=== PATIENT | male | born 1995 | race Caucasian/White ===

== ENCOUNTER 2020-05-05 22:22 | Inpatient (IN) | payer MEDICAID ==
[~2020-05-05] VITALS: Ht 160 cm; Wt 65.8 kg
[~2020-05-05 22:22] MED LIST: AMIT25TA9 PO; OXYC40TA50 PO
[2020-05-05] MEDS ORDERED: KETOROLAC 30MG/ML VIAL IV STA (22:34)
[2020-05-05] MEDS ORDERED: SODIUM CHLORIDE 0.9% 1,000 ML IV ONE (22:34)
[2020-05-05] MEDS ORDERED: ONDANSETRON HCL 4MG/2ML INJ IV STA (22:34)
[2020-05-05 23:19] LABS: BASOPHILS % 0.4 % (0.0-2.0); HEMATOCRIT. 43.1 % (42.0-52.0); HEMOGLOBIN. 14.7 g/dL (14.0-18.0); LYMPHOCYTES % 9.4 % (20.0-50.0); MEAN CORPUSCULAR HEMOGLOBIN 30.6 pg (28.0-32.0); MEAN CORPUSCULAR VOLUME 89.6 fL (80.0-94.0); MONOCYTES % 8.9 % (2.0-8.0); NEUTROPHILS % 81.3 % (40.0-76.0); PLATELET 195 x1000/uL (130-400); RED BLOOD CELL COUNT 4.81 mill/uL (4.7-6.1); RED CELL DISTRIBUTION WIDTH 13.7 % (11.6-14.6)
[2020-05-05 23:28] LABS: INR 1.1; PROTHROMBIN TIME 11.7 sec (9.6-11.0)
[2020-05-05 23:29] LABS: CHLORIDE 99 mEq/L (98-107)
[2020-05-05 23:37] LABS: CLARITY URINE CLEAR (CLEAR); COLOR URINE DARK YELLOW (YELLOW); KETONES URINE 3+ (NEGATIVE); LEUKOCYTE ESTERASE URINE NEGATIVE (NEGATIVE); NITRITE URINE NEGATIVE (NEGATIVE); OCCULT BLOOD URINE NEGATIVE (NEGATIVE); PROTEIN URINE 1+ (NEGATIVE); SPECIFIC GRAVITY URINE 1.038 (1.005-1.030)
[2020-05-06] MEDS ORDERED: ONDANSETRON HCL 4MG/2ML INJ IV ONE ×2 (01:30)
[2020-05-06] MEDS ORDERED: KETOROLAC 15MG/ML VIAL IV ONE (02:00)
[2020-05-06] MEDS ORDERED: KCL 20MEQ/100ML PREMIX 100 ML IV SCH (02:00)
[2020-05-06] MEDS ORDERED: PIPERACILLIN/TAZOBACTAM 3.375GM/50ML PREMIX IV SCH (02:00)
[2020-05-06] MEDS: ONDANSETRON HCL 4MG/2ML INJ IV PRN ×3 (03:38→14:34)
[2020-05-06] MEDS: MORPHINE SULFATE 2 MG/ML CPJ (NOT FOR IM USE) IV PRN ×3 (03:38→18:05)
[2020-05-06 08:00] VITALS: BP 109/55
[2020-05-06] MEDS ORDERED: ACETAMINOPHEN 325MG TABLET PO PRN (08:15)
[2020-05-06 10:53] VITALS: BP 109/55
[2020-05-06] MEDS: PIPERACILLIN/TAZOBACTAM 3.375 G in DEXT 5% WATER 100 ML IV SCH ×3 (11:17→22:14)
[2020-05-06 12:00] VITALS: BP 128/80
[2020-05-06] MEDS: DEXT 5%/0.9% NACL 1,000 ML IV SCH (15:46)
[2020-05-06 16:00] VITALS: BP 123/71
[2020-05-07] VITALS: BP 105/72
[2020-05-07] MEDS: ONDANSETRON HCL 4MG/2ML INJ IV PRN (02:15)
[2020-05-07] MEDS: DEXT 5%/0.9% NACL 1,000 ML IV SCH ×2 (02:15→11:55)
[2020-05-07 04:00] VITALS: BP 100/59
[2020-05-07] MEDS: PIPERACILLIN/TAZOBACTAM 3.375 G in DEXT 5% WATER 100 ML IV SCH ×2 (04:38→09:31)
[2020-05-07] MEDS: MORPHINE SULFATE 2 MG/ML CPJ (NOT FOR IM USE) IV PRN ×2 (05:26→09:32)
[2020-05-07 08:00] VITALS: BP 110/71
[2020-05-07 12:00] VITALS: BP 115/76
[2020-05-07 14:28] VITALS: BP 115/76
[2020-05-07] MEDS ORDERED: AZIT500T8 MT (14:47)
== END 2020-05-07 16:05 | disposition home or self-care (01) | DRG 720 ==
LOC: ER 22:22 → 6EST 05-06 01:00 → ENRESERV 05-06 05:07
PROVIDERS: ADMIT Internal Medicine; ATTEND Internal Medicine
DX: A41.9 Sepsis, unspecified organism (principal); E87.1 Hypo-osmolality and hyponatremia; E87.6 Hypokalemia; F12.90 Cannabis use, unspecified, uncomplicated; K52.9 Noninfective gastroenteritis and colitis, unspecified; Z79.899 Other long term (current) drug therapy; Z79.891 Long term (current) use of opiate analgesic
CPT/HCPCS: 36415; 71045; 80053; 81003; 84484; 85025; 99285; J1885; J2270; J2405; J2543; J3480; J7030; J7042; J7060

== ENCOUNTER 2021-02-20 20:38 | Inpatient (IN) | payer MEDICAID ==
[~2021-02-20] VITALS: Ht 160 cm; Wt 67.8 kg
[~2021-02-20 20:38] MED LIST changes: +AZIT500T8 MT; +FAMO20TA8 MT; +ONDA4TAB50 MT
[2021-02-20] MEDS ORDERED: ONDANSETRON HCL 4MG/2ML INJ IV STA (21:20)
[2021-02-20] MEDS ORDERED: KETOROLAC 30MG/ML VIAL IV STA (21:20)
[2021-02-20] MEDS ORDERED: SODIUM CHLORIDE 0.9% 1,000 ML IV ONE (21:30)
[2021-02-20 21:47] LABS: HEMATOCRIT. 48.3 % (42.0-52.0); HEMOGLOBIN. 16.6 g/dL (14.0-18.0); MEAN CORPUSCULAR HEMOGLOBIN 30.1 pg (28.0-32.0); MEAN CORPUSCULAR VOLUME 87.5 fL (80.0-94.0); MEAN PLATELET VOLUME 10.3 fl (7.4-10.4); PLATELET 269 x1000/uL (130-400); RED BLOOD CELL COUNT 5.52 mill/uL (4.7-6.1); RED CELL DISTRIBUTION WIDTH 13.5 % (11.6-14.6)
[2021-02-20 21:54] LABS: CHLORIDE 106 mEq/L (98-107)
[2021-02-20 21:58] LABS: ETHANOL BLOOD < 10 mg/dL
[2021-02-20 22:18] LABS: PLATELET ESTIMATE NORMAL
[2021-02-21] MEDS ORDERED: LORAZEPAM 2MG/ML CPJ IV ONE (00:30)
[2021-02-21] MEDS ORDERED: METOCLOPRAMIDE HCL 10MG/2ML VIAL IV ONE (00:30)
[2021-02-21 03:02] LABS: CLARITY URINE CLEAR (CLEAR); COLOR URINE YELLOW (YELLOW); KETONES URINE 4+ (NEGATIVE); LEUKOCYTE ESTERASE URINE NEGATIVE (NEGATIVE); NITRITE URINE NEGATIVE (NEGATIVE); OCCULT BLOOD URINE NEGATIVE (NEGATIVE); PH URINE 7.5 (4.5-8.0); PROTEIN URINE TRACE (NEGATIVE); SPECIFIC GRAVITY URINE 1.027 (1.005-1.030); UROBILINOGEN URINE 0.2 E.U./dL (0.2-1.0)
[2021-02-21 03:21] LABS: *AMPHETAMINES SCREEN URINE NEGATIVE (NEGATIVE); *BARBITURATES SCREEN URINE NEGATIVE (NEGATIVE); *BENZODIAZEPINES SCREEN URINE NEGATIVE (NEGATIVE); *COCAINE SCREEN URINE NEGATIVE (NEGATIVE); METHADONE URINE SCREEN NEGATIVE (NEGATIVE); OPIATES URINE SCREEN NEGATIVE (NEGATIVE); PHENCYCLIDINE URINE SCREEN NEGATIVE (NEGATIVE)
[2021-02-21 03:22] LABS: CANNABINOID URINE SCREEN PRESUMTIVE POSITIVE (NEGATIVE)
[2021-02-21] MEDS ORDERED: MORPHINE SULFATE 2 MG/ML CPJ (NOT FOR IM USE) IV PRN (03:30)
[2021-02-21] MEDS ORDERED: METOCLOPRAMIDE HCL 10MG/2ML VIAL IV PRN (03:30)
[2021-02-21 04:20] VITALS: BP 139/88
[2021-02-21] MEDS ORDERED: ACETAMINOPHEN 325MG TABLET PO PRN (05:15)
[2021-02-21] MEDS: ONDANSETRON HCL 4MG/2ML INJ IV PRN ×2 (06:54→12:51)
[2021-02-21 07:02] LABS: CHLORIDE 108 mEq/L (98-107)
[2021-02-21 07:57] LABS: HEMATOCRIT. 43.8 % (42.0-52.0); HEMOGLOBIN. 14.9 g/dL (14.0-18.0); MEAN CORPUSCULAR HEMOGLOBIN 29.9 pg (28.0-32.0); MEAN CORPUSCULAR VOLUME 88.2 fL (80.0-94.0); MEAN PLATELET VOLUME 11.2 fl (7.4-10.4); PLATELET 233 x1000/uL (130-400); RED BLOOD CELL COUNT 4.97 mill/uL (4.7-6.1); RED CELL DISTRIBUTION WIDTH 13.4 % (11.6-14.6)
[2021-02-21 08:00] VITALS: BP 118/65
[2021-02-21] MEDS ORDERED: LEVOFLOXACIN 500MG PREMIX 100 ML IV SCH (08:00)
[2021-02-21] MEDS ORDERED: PANTOPRAZOLE SODIUM 40 MG/VIAL IV SCH (09:00)
[2021-02-21 10:33] LABS: PLATELET ESTIMATE NORMAL
[2021-02-21 12:00] VITALS: BP 120/64
[2021-02-21 16:00] VITALS: BP 117/60
[2021-02-21 17:40] VITALS: BP 115/61
== END 2021-02-21 18:26 | disposition left against medical advice (07) | DRG 143 ==
LOC: ER 20:38 → 6WST 02-21 00:20 → EDBEDREQTM 02-21 00:21 → EDBEDREQ 02-21 00:21 → ENRESERV 02-21 03:29
PROVIDERS: ADMIT Internal Medicine; ATTEND Internal Medicine
DX: J98.2 Interstitial emphysema (principal); K22.3 Perforation of esophagus; K76.0 Fatty (change of) liver, not elsewhere classified; R65.10 Systemic inflammatory response syndrome (SIRS) of non-infectious origin without acute organ dysfunction; Z53.29 Procedure and treatment not carried out because of patient's decision for other reasons; F10.10 Alcohol abuse, uncomplicated; F12.90 Cannabis use, unspecified, uncomplicated; Z79.899 Other long term (current) drug therapy; Z71.41 Alcohol abuse counseling and surveillance of alcoholic; K52.9 Noninfective gastroenteritis and colitis, unspecified
CPT/HCPCS: 36415; 71250; 74176; 80048; 80053; 80305; 80320; 81003; 85025; 99291; C9113; J1885; J1956; J2060; J2270; J2405; J2765; J7030; G0480

== ENCOUNTER 2021-02-22 00:57 | Inpatient (IN) | payer MEDICAID, OTHER ==
[~2021-02-22] VITALS: Ht 160 cm; Wt 68.0 kg
[2021-02-22] VITALS (8 sets, daily range): BP systolic 99–129; BP diastolic 44–79
[2021-02-22] MEDS ORDERED: VISCOUS LIDOCAINE 2% 15 ML UDC PO STA (01:16)
[2021-02-22] MEDS ORDERED: METOCLOPRAMIDE HCL 10MG/2ML VIAL IV STA (01:16)
[2021-02-22] MEDS ORDERED: ONDANSETRON HCL 4MG/2ML INJ IV STA (01:16)
[2021-02-22] MEDS ORDERED: PANTOPRAZOLE SODIUM 40 MG/VIAL IV STA (01:16)
[2021-02-22] MEDS ORDERED: MAGNESIUM/ALUMINUM HYDROXIDE/SIMETHICONE 30ML UDC PO STA (01:16)
[2021-02-22] MEDS ORDERED: HALOPERIDOL LACTATE 5MG/ML VIAL IM ONE (01:30)
[2021-02-22 01:41] LABS: CHLORIDE 104 mEq/L (98-107)
[2021-02-22 01:41] LABS: CLARITY URINE CLEAR (CLEAR); COLOR URINE DARK YELLOW (YELLOW); KETONES URINE 4+ (NEGATIVE); LEUKOCYTE ESTERASE URINE TRACE (NEGATIVE); NITRITE URINE NEGATIVE (NEGATIVE); OCCULT BLOOD URINE NEGATIVE (NEGATIVE); PROTEIN URINE 1+ (NEGATIVE); SPECIFIC GRAVITY URINE 1.032 (1.005-1.030)
[2021-02-22 01:44] LABS: BASOPHILS % 0.4 % (0.0-2.0); HEMATOCRIT. 44.8 % (42.0-52.0); HEMOGLOBIN. 15.3 g/dL (14.0-18.0); LYMPHOCYTES % 17.6 % (20.0-50.0); MEAN CORPUSCULAR HEMOGLOBIN 29.7 pg (28.0-32.0); MEAN CORPUSCULAR VOLUME 86.7 fL (80.0-94.0); MEAN PLATELET VOLUME 10.3 fl (7.4-10.4); MONOCYTES % 8.7 % (2.0-8.0); NEUTROPHILS % 73.3 % (40.0-76.0); PLATELET 258 x1000/uL (130-400); RED BLOOD CELL COUNT 5.16 mill/uL (4.7-6.1); RED CELL DISTRIBUTION WIDTH 13.5 % (11.6-14.6)
[2021-02-22 01:50] LABS: ETHANOL BLOOD < 10 mg/dL
[2021-02-22 01:51] LABS: *AMPHETAMINES SCREEN URINE NEGATIVE (NEGATIVE); *BARBITURATES SCREEN URINE NEGATIVE (NEGATIVE)
[2021-02-22 01:52] LABS: *BENZODIAZEPINES SCREEN URINE NEGATIVE (NEGATIVE); *COCAINE SCREEN URINE NEGATIVE (NEGATIVE); CANNABINOID URINE SCREEN PRESUMTIVE POSITIVE (NEGATIVE); METHADONE URINE SCREEN NEGATIVE (NEGATIVE); OPIATES URINE SCREEN PRESUMTIVE POSITIVE (NEGATIVE); PHENCYCLIDINE URINE SCREEN NEGATIVE (NEGATIVE)
[2021-02-22] MEDS ORDERED: SODIUM CHLORIDE 0.9% 1,000 ML IV ONE (02:45)
[2021-02-22] MEDS ORDERED: DEXT 5%/0.45% NACL 1000ML 1,000 ML IV SCH (11:00)
[2021-02-22] MEDS ORDERED: VANCOMYCIN 1 G PREMIX 200 ML IV SCH ×2 (13:00→21:00)
[2021-02-22] MEDS: FOLIC ACID 1 MG, THIAMINE HCL 100 MG, MVI, ADULT NO.1 10 ML in DEXTROSE 5% WATER 1,000 ML IV SCH (13:12)
[2021-02-22] MEDS: PIPERACILLIN/TAZOBACTAM 3.375 G in DEXT 5% WATER 100 ML IV SCH (13:12)
[2021-02-22] MEDS: LORAZEPAM 2MG/ML CPJ IV PRN ×2 (16:25→22:45)
[2021-02-22] MEDS ORDERED: POTASSIUM CHLORIDE INJ 40 MEQ in DEXT 5% WATER 250 ML IV NR (16:30)
[2021-02-22] MEDS: VANCOMYCIN 750 MG PREMIX 150 ML IV SCH (21:46)
[2021-02-22] MEDS: ONDANSETRON HCL 4MG/2ML INJ IV PRN (22:45)
[2021-02-23] VITALS (8 sets, daily range): BP systolic 90–123; BP diastolic 58–71
[2021-02-23] MEDS: PIPERACILLIN/TAZOBACTAM 3.375 G in DEXT 5% WATER 100 ML IV SCH ×4 (00:05→18:00)
[2021-02-23] MEDS: MORPHINE SULFATE 2 MG/ML CPJ (NOT FOR IM USE) IV PRN ×2 (02:22→23:36)
[2021-02-23] MEDS: VANCOMYCIN 750 MG PREMIX 150 ML IV SCH ×3 (04:56→21:30)
[2021-02-23 07:20] LABS: BASOPHILS % 0.3 % (0.0-2.0); EOSINOPHILS % 2.2 % (0.0-5.0); HEMATOCRIT. 40.7 % (42.0-52.0); LYMPHOCYTES % 31.2 % (20.0-50.0); MEAN CORPUSCULAR HEMOGLOBIN 30.7 pg (28.0-32.0); MEAN CORPUSCULAR VOLUME 88.9 fL (80.0-94.0); MEAN PLATELET VOLUME 10.6 fl (7.4-10.4); NEUTROPHILS % 58.3 % (40.0-76.0); PLATELET 193 x1000/uL (130-400); RED BLOOD CELL COUNT 4.58 mill/uL (4.7-6.1); RED CELL DISTRIBUTION WIDTH 13.4 % (11.6-14.6)
[2021-02-23 07:40] LABS: CHLORIDE 105 mEq/L (98-107)
[2021-02-23] MEDS: PANTOPRAZOLE SODIUM 40 MG/VIAL IV SCH (08:43)
[2021-02-23] MEDS: FOLIC ACID 1 MG, THIAMINE HCL 100 MG, MVI, ADULT NO.1 10 ML in DEXTROSE 5% WATER 1,000 ML IV SCH (15:30)
[2021-02-23] MEDS ORDERED: POTASSIUM CHLORIDE INJ 40 MEQ in DEXT 5% WATER 250 ML IV SCH (16:00)
[2021-02-23] MEDS: LORAZEPAM 2MG/ML CPJ IV PRN (17:24)
[2021-02-23] MEDS: ONDANSETRON HCL 4MG/2ML INJ IV PRN (21:30)
[2021-02-24] VITALS: BP 112/55
[2021-02-24] MEDS: PIPERACILLIN/TAZOBACTAM 3.375 G in DEXT 5% WATER 100 ML IV SCH ×2 (00:32→05:17)
[2021-02-24] MEDS: LORAZEPAM 2MG/ML CPJ IV PRN (02:19)
[2021-02-24 05:48] LABS: CHLORIDE 103 mEq/L (98-107)
[2021-02-24 05:49] LABS: HEMOGLOBIN. 15.3 g/dL (14.0-18.0); MEAN CORPUSCULAR HEMOGLOBIN 30.3 pg (28.0-32.0); MEAN PLATELET VOLUME 10.4 fl (7.4-10.4); PLATELET 228 x1000/uL (130-400); RED BLOOD CELL COUNT 5.06 mill/uL (4.7-6.1); RED CELL DISTRIBUTION WIDTH 13.4 % (11.6-14.6)
[2021-02-24] MEDS: VANCOMYCIN 750 MG PREMIX 150 ML IV SCH (06:01)
[2021-02-24 08:00] VITALS: BP 167/60
[2021-02-24] MEDS: PANTOPRAZOLE SODIUM 40 MG/VIAL IV SCH (08:44)
[2021-02-24 13:57] LABS: PLATELET ESTIMATE NORMAL
[2021-02-24] MEDS ORDERED: POTASSIUM CHLORIDE INJ 40 MEQ in DEXT 5% WATER 250 ML IV SCH (16:00)
== END 2021-02-24 17:53 | disposition left against medical advice (07) | DRG 143 ==
LOC: ER 00:57 → 5EST 02:35 → ENRESERV 07:25 → 5EST 18:58
PROVIDERS: ADMIT Internal Medicine; ATTEND Internal Medicine
DX: J98.2 Interstitial emphysema (principal); K22.3 Perforation of esophagus; E87.6 Hypokalemia; Z53.29 Procedure and treatment not carried out because of patient's decision for other reasons; K29.70 Gastritis, unspecified, without bleeding; F10.10 Alcohol abuse, uncomplicated; Z79.899 Other long term (current) drug therapy
CPT/HCPCS: 36415; 71045; 80048; 80053; 80202; 80305; 80320; 81003; 85025; 93005; 99291; C9113; J1630; J2060; J2270; J2405; J2543; J2765; J3370; J3411; J3480; J3490; J7030; J7060; J7070; G0480

== ENCOUNTER 2022-06-21 02:38 | Emergency (ER) | payer MEDICAID, OTHER ==
[~2022-06-21] VITALS: Ht 160 cm; Wt 71.9 kg
[2022-06-21 02:46] VITALS: BP 128/60
[2022-06-21] MEDS ORDERED: TOPUD PO (08:41)
[2022-06-21] MEDS ORDERED: AMOX1TAB16 PO (08:41)
[2022-06-26] MEDS ORDERED: L25 MT (10:42)
[2022-06-26] MEDS ORDERED: THIA100T72 MT (10:43)
== END 2022-06-21 04:14 | disposition left against medical advice (07) ==
LOC: ER 02:38
DX: Z53.21 Procedure and treatment not carried out due to patient leaving prior to being seen by health care provider (principal)

== ENCOUNTER 2022-06-21 06:32 | Emergency (ER) | payer OTHER ==
[~2022-06-21] VITALS: Ht 160 cm; Wt 66.6 kg
[2022-06-21] MEDS ORDERED: KETOROLAC 30MG/ML VIAL IV STA (07:04)
[2022-06-21] MEDS ORDERED: ONDANSETRON HCL 4MG/2ML INJ IV STA (07:04)
[2022-06-21] MEDS ORDERED: DEXAMETHASONE 10 MG/ML VIAL IV ONE (07:15)
[2022-06-21] MEDS ORDERED: SODIUM CHLORIDE 0.9% 1,000 ML IV ONE (07:15)
[2022-06-21 07:52] VITALS: BP 122/81
[2022-06-21] MEDS ORDERED: AMOX1TAB16 PO (08:41)
[2022-06-21] MEDS ORDERED: TOPUD PO (08:41)
[2022-06-26] MEDS ORDERED: L25 MT (10:42)
[2022-06-26] MEDS ORDERED: THIA100T72 MT (10:43)
== END 2022-06-21 08:56 | disposition home or self-care (01) ==
LOC: ER 06:32
DX: J02.0 Streptococcal pharyngitis (principal)
CPT/HCPCS: 87070; 87430; 96361; 96374; 96375; 99284; J1100; J1885; J2405; J7030